=== PATIENT | male | born 1990 | race Caucasian/White ===

== ENCOUNTER 2016-06-07 13:05 | Emergency (ER) | payer SELFPAY ==
--- NOTE | 2016-06-07 13:43 | ERRECORD ---
[facility] EMERGENCY RECORD HPI WOUND CHECK (13:39 ABUS) CHIEF COMPLAINT: Patient presents for evaluation of arm wound, laceration, closed with sutures, Wound is 3 days old. HISTORIAN: History provided by patient, History provided by patient's family, Mother, 25 yr old who comes in for a wound check after he has a laceration that appeared infected and told to come back in 2 days for a wound check. He got a IM shot of penicillin. The redness and swelling improved. Denies any F, N/V. LOCATION: Symptoms are localized, most severe to to lacerations. SEVERITY: Currently there are no symptoms. TIME COURSE: Gradual onset of symptoms, 3, days priror to arrival, There has been no change in the patient's symptoms over time, are constant. ASSOCIATED WITH: No associated symptoms. EXACERBATED BY: Patient's condition exacerbated by nothing. RELIEVED BY: Patient's condition relieved by nothing. ROS (13:41 ABUS) CONSTITUTIONAL: Negative constitutional review of systems, Historian denies chills, denies fever. ENT: Negative ears, nose, throat review of systems, Historian denies rhinorrhea, denies sore throat. CARDIOVASCULAR: Negative cardiovascular review of systems, Historian denies chest pain, denies palpitations. RESPIRATORY: Negative respiratory review of systems, Historian denies cough, denies shortness of breath. GI: Negative gastrointestinal review of systems, Historian denies abdominal pain, denies constipation, denies diarrhea, denies nausea, denies vomiting. MUSCULOSKELETAL: Negative musculoskeletal review of systems, Historian denies back pain, denies fall, denies injury, denies neck pain. SKIN: Negative skin review of systems. NEUROLOGIC: Negative neurologic review of systems, Historian denies headache. PAST MEDICAL HISTORY (13:24 JPER) MEDICAL HISTORY: No past medical history, Tetanus immunization up to date, Date of immunization: 06/04/2015, , No past medical history, Flu vaccine not up to date,Pneumococcal vaccine not up to date, No past medical history,. MALE SURGICAL HISTORY: Surgical history of tonsillectomy, Surgical history of tonsillectomy, Surgical history of tonsillectomy. PSYCHIATRIC HISTORY: Notes: VERIFIED, Psychiatric history includes, anxiety, depression. SOCIAL HISTORY: Social History includes VERIFIED, Patient drinks every day, less than 5 drinks per day, Patient currently uses drugs, abuses marijuana, Patient currently uses tobacco, smokes cigarettes, Lives at home, with family, Patient &a-1R&a+25V*p+0X*[id number]*c152B*c15G*c2P*p-0X&a-25V&a+1RName: Scotty Mendes : M25 MedRec: [id number] AcctNum: [id number] Prepared: TueJun 07, 2016 14:03 by Interface Page 1 of 3 pMD [facility] EMERGENCY RECORD currently uses drugs, abuses marijuana, Social drug use, Patient drinks every day, less than 5 drinks per day, Patient currently uses tobacco, smokes cigarettes, daily, Patient has smoked for 5 years, Lives at home, with family. KNOWN ALLERGIES No Known Drug Allergies CURRENT MEDICATIONS (13:25 JPER) Cipro: TABLET : Strength - 500 mg : ORAL Patient Dose: 1 tab(s) Oral 2 times a day. Keflex: CAPSULE : Strength - 500 mg : ORAL Patient Dose: 1 cap(s) Oral 4 times a day. Ultram: TABLET : Strength - 50 mg : ORAL Patient Dose: 1 tab(s) Oral every 4 hours prn. VITAL SIGNS (13:23 JPER) VITAL SIGNS: BP: 137/76, Pulse: 70, Resp: 18, Temp: 99 (Oral), O2 sat: 98 on Room Air, Time: 06/07/2016 13:23. PHYSICAL EXAM (13:41 ABUS) CONSTITUTIONAL: Vital signs reviewed, Patient afebrile, Pulse normal, Blood pressure normal, Respiratory rate normal, Patient appears non toxic, Patient appears pain free, Patient alert and oriented to person, place and time. NECK: Neck exam normal, Neck exam included findings of normal range of motion, Trachea midline, no meningeal signs, no cervical adenopathy, no tenderness. RESPIRATORY CHEST: Respiratory and chest exam normal, Respiratory exam included findings of no respiratory distress, Breath sounds clear. CARDIOVASCULAR: Cardiovascular assessment normal, Cardiovascular exam included findings of heart rate regular rate and rhythm, Heart sounds normal. ABDOMEN MALE: Abdominal exam included findings of abdomen nontender, Bowel sounds normal, no distension, no mass, no pulsatile masses, no peritoneal signs, no rigidity, no guarding, no rebound, Rovsing's sign absent. BACK: Back exam normal, Back exam included findings of normal inspection, range of motion normal, no tenderness. NEURO: Neuro exam normal, Neuro exam findings include patient oriented to person, place and time, Speech normal, Gait normal. SKIN: Skin exam included findings of skin warm, dry, and normal in color, no rash, sutures in place to the R forearm and left dorsal hand intact, no redness or significant swelling. Has normal sensation to all major deramatomes and cap refill < sec, can flex and extend fingers. &a-1R&a+25V*p+0X*l2322W*c152B*c15G*c2P*p-0X&a-25V&a+1RName: Scotty Mendes : M25 MedRec: [id number] AcctNum: [id number] Prepared: TueJun 07, 2016 14:03 by Interface Page 2 of 3 pMD [facility] EMERGENCY RECORD DOCTOR NOTES (13:42 ABUS) TEXT: 25 yr old who comes in for a wound check after he has a laceration that appeared infected and told to come back in 2 days for a wound check. EXAM: Sutured wounds healing well; no s/s of infection DX: Normal wound healing without new or worsening infection. Plan: reassurance and return precautions. PROBLEM LIST No recorded problems DIAGNOSIS (13:35 ABUS) FINAL: PRIMARY: wound evaluation. PRESCRIPTION No recorded prescriptions DISPOSITION PATIENT: Disposition Type: Discharge, Disposition: *Discharge Home, Condition: Good. (13:35 ABUS) Patient left the department. (13:56 MDEB) Huynh: ABUS=MD Anne, Werner KWON=JOSE Martinez, Katerina MELENDEZEB=JOSE Knox, Christina &a-1R&a+25V*p+0X*[id number]*c152B*c15G*c2P*p-0X&a-25V&a+1RName: Scotty Mendes : M25 MedRec: [id number] AcctNum: [id number] Prepared: TueJun 07, 2016 14:03 by Interface Page 3 of 3 pMD [facility]
--- NOTE | 2016-06-07 13:46 | PICIS ---
[facility] EMERGENCY RECORD TRIAGE (13:24 JPER) PATIENT: NAME: Scotty Mendes, AGE: 25, GENDER: male, : TueOct 28, 1990, TIME OF GREET: TueJun 07, 2016 13:06, PREFERRED LANGUAGE: Turkish, RACE: WHITE, ETHNICITY: Not or , FALL RISK: NO, ECODE BILLING MAP: [facility], SSN: [id number], Zip Code: [address], KG WEIGHT: 53.07, PHONE: CELL, , , PERSON ID: [id number], PCP: NO PCP. (13:24 JPER) COMPLAINT: NEED STITCHES REMOVED. (13:24 JPER) ADMISSION: URGENCY: 4 Non Urgent, ADMISSION SOURCE: Home, TRANSPORT: Walk-in, BED: TRIAGE. (13:24 JPER) ASSESSMENT: Assessment: WOUND RECHECK. (13:24 JPER) PAIN: Location SORENESS TO AREA. (13:24 JPER) IMMUNIZATIONS: Tetanus immunization up to date. (13:24 JPER) SIRS SCORING: Heart Rate 55-109 (0), Temp range 96.8-101.1 (0), respiratory rate 12-24 (0), Mental Status altered: no (0). (13:24 JPER) TRIAGE SCREENING: Patient denies suicidal ideation, Patient denies presence of domestic violence. (13:24 JPER) PROVIDERS: TRIAGE NURSE: Katerina Martinez RN. (13:24 JPER) VITAL SIGNS: BP 137/76, Pulse 70, Resp 18, Temp 99, (Oral), O2 Sat 98, on Room Air, Time 06/07/2016 13:23. (13:23 JPER) PREVIOUS VISIT ALLERGIES: No Known Drug Allergies. (13:24 JPER) KNOWN ALLERGIES No Known Drug Allergies CURRENT MEDICATIONS (13:25 JPER) Cipro: TABLET : Strength - 500 mg : ORAL Patient Dose: 1 tab(s) Oral 2 times a day. Keflex: CAPSULE : Strength - 500 mg : ORAL Patient Dose: 1 cap(s) Oral 4 times a day. Ultram: TABLET : Strength - 50 mg : ORAL Patient Dose: 1 tab(s) Oral every 4 hours prn. VITAL SIGNS (13:23 JPER) VITAL SIGNS: BP: 137/76, Pulse: 70, Resp: 18, Temp: 99 (Oral), O2 sat: 98 on Room Air, Time: 06/07/2016 13:23. NURSING ASSESSMENT: SKIN (13:30 JPER) CONSTITUTIONAL: Patient arrives ambulatory, Gait steady, History obtained from patient, Patient appears comfortable, Patient cooperative, Patient alert, Oriented to person, place and time, Skin warm, Skin dry, Skin normal in color, Mucous membranes pink, Mucous membranes moist, Patient complains of WOUND RECHECK. PAIN: TENDERNESS TO WOUNDS, Pain exacerbated by nothing, Nothing has been tried to alleviate the pain. SKIN: Skin assessment findings include skin warm, Skin dry, Skin &a-1R&a+25V*p+0X*t3574Z*c152B*c15G*c2P*p-0X&a-25V&a+1RName: Scotty Meneds : M25 MedRec: [id number] AcctNum: [id number] Prepared: TueJun 07, 2016 14:09 by Interface Page 1 of 4 pMD [facility] EMERGENCY RECORD normal in color, Inspection findings include laceration, LEFT HAND AND RIGHT FA. NURSING PROCEDURE: DISCHARGE NOTE (13:52 MDEB) DISCHARGE: Patient discharged to home, ambulating without assistance, family driving, accompanied by parent, Summary of Care printed/ provided, Patient requested and was provided an electronic copy of Discharge Instructions, Transition record given to patient, Discharge instructions given to patient, Simple or moderate discharge teaching performed, S/S INFECTION, Above person(s) verbalized understanding of discharge instructions and follow-up care, Patient treated and evaluated by physician. BELONGINGS: Belongings remain with patient, Valuables remain with patient. NOTES: Emotional support needed and given, Patient tolerated procedure well. [facility] WOUND CHECK (13:39 ABUS) CHIEF COMPLAINT: Patient presents for evaluation of arm wound, laceration, closed with sutures, Wound is 3 days old. HISTORIAN: History provided by patient, History provided by patient's family, Mother, 25 yr old who comes in for a wound check after he has a laceration that appeared infected and told to come back in 2 days for a wound check. He got a IM shot of penicillin. The redness and swelling improved. Denies any F, N/V. LOCATION: Symptoms are localized, most severe to to lacerations. SEVERITY: Currently there are no symptoms. TIME COURSE: Gradual onset of symptoms, 3, days priror to arrival, There has been no change in the patient's symptoms over time, are constant. ASSOCIATED WITH: No associated symptoms. EXACERBATED BY: Patient's condition exacerbated by nothing. RELIEVED BY: Patient's condition relieved by nothing. ROS (13:41 ABUS) CONSTITUTIONAL: Negative constitutional review of systems, Historian denies chills, denies fever. ENT: Negative ears, nose, throat review of systems, Historian denies rhinorrhea, denies sore throat. CARDIOVASCULAR: Negative cardiovascular review of systems, Historian denies chest pain, denies palpitations. RESPIRATORY: Negative respiratory review of systems, Historian denies cough, denies shortness of breath. GI: Negative gastrointestinal review of systems, Historian denies abdominal pain, denies constipation, denies diarrhea, denies nausea, denies vomiting. MUSCULOSKELETAL: Negative musculoskeletal review of systems, Historian denies back pain, denies fall, denies injury, denies neck pain. SKIN: Negative skin review of systems. &a-1R&a+25V*p+0X*a7962V*c152B*c15G*c2P*p-0X&a-25V&a+1RName: Scotty Mendes : M25 MedRec: [id number] AcctNum: [id number] Prepared: TueJun 07, 2016 14:09 by Interface Page 2 of 4 pMD [facility] EMERGENCY RECORD NEUROLOGIC: Negative neurologic review of systems, Historian denies headache. PAST MEDICAL HISTORY (13:24 JPER) MEDICAL HISTORY: No past medical history, Tetanus immunization up to date, Date of immunization: 06/04/2015, , No past medical history, Flu vaccine not up to date,Pneumococcal vaccine not up to date, No past medical history,. MALE SURGICAL HISTORY: Surgical history of tonsillectomy, Surgical history of tonsillectomy, Surgical history of tonsillectomy. PSYCHIATRIC HISTORY: Notes: VERIFIED, Psychiatric history includes, anxiety, depression. SOCIAL HISTORY: Social History includes VERIFIED, Patient drinks every day, less than 5 drinks per day, Patient currently uses drugs, abuses marijuana, Patient currently uses tobacco, smokes cigarettes, Lives at home, with family, Patient currently uses drugs, abuses marijuana, Social drug use, Patient drinks every day, less than 5 drinks per day, Patient currently uses tobacco, smokes cigarettes, daily, Patient has smoked for 5 years, Lives at home, with family. PHYSICAL EXAM (13:41 ABUS) CONSTITUTIONAL: Vital signs reviewed, Patient afebrile, Pulse normal, Blood pressure normal, Respiratory rate normal, Patient appears non toxic, Patient appears pain free, Patient alert and oriented to person, place and time. NECK: Neck exam normal, Neck exam included findings of normal range of motion, Trachea midline, no meningeal signs, no cervical adenopathy, no tenderness. RESPIRATORY CHEST: Respiratory and chest exam normal, Respiratory exam included findings of no respiratory distress, Breath sounds clear. CARDIOVASCULAR: Cardiovascular assessment normal, Cardiovascular exam included findings of heart rate regular rate and rhythm, Heart sounds normal. ABDOMEN MALE: Abdominal exam included findings of abdomen nontender, Bowel sounds normal, no distension, no mass, no pulsatile masses, no peritoneal signs, no rigidity, no guarding, no rebound, Rovsing's sign absent. BACK: Back exam normal, Back exam included findings of normal inspection, range of motion normal, no tenderness. NEURO: Neuro exam normal, Neuro exam findings include patient oriented to person, place and time, Speech normal, Gait normal. SKIN: Skin exam included findings of skin warm, dry, and normal in color, no rash, sutures in place to the R forearm and left dorsal hand intact, no redness or significant swelling. Has normal sensation to all major deramatomes and cap refill < sec, can flex and extend fingers. EVENTS &a-1R&a+25V*p+0X*k8281H*c152B*c15G*c2P*p-0X&a-25V&a+1RName: Scotty Mendes : M25 MedRec: [id number] AcctNum: [id number] Prepared: TueJun 07, 2016 14:09 by Interface Page 3 of 4 pMD [facility] EMERGENCY RECORD TRANSFER: Triage to Emergency Triage. (TueJun 07, 2016 13:24 JPER) Emergency Triage to Main ED -03. (13:25 JPER) Removed from Emergency Main ED -03. (13:56 MDEB) DOCTOR NOTES (13:42 ABUS) TEXT: 25 yr old who comes in for a wound check after he has a laceration that appeared infected and told to come back in 2 days for a wound check. EXAM: Sutured wounds healing well; no s/s of infection DX: Normal wound healing without new or worsening infection. Plan: reassurance and return precautions. PROBLEM LIST No recorded problems DIAGNOSIS (13:35 ABUS) FINAL: PRIMARY: wound evaluation. DISPOSITION PATIENT: Disposition Type: Discharge, Disposition: *Discharge Home, Condition: Good. (13:35 ABUS) Patient left the department. (13:56 MDEB) INSTRUCTION (13:36 ABUS) DISCHARGE: WOUND CARE. FOLLOWUP: [facility], [address] [place] [address], , Follow up with Primary Care Physician in 3-4 days. SPECIAL: As discussed in the ED, please keep any upcoming appointments with your primary doctor or call the referral provided to you today to establish a follow up evaluation or ongoing medical care. Please come back if you start to have fever, vomiting, redness, swelling, numbness, or any symptoms that concern you. PRESCRIPTION No recorded prescriptions IMAGING (13:55 MDEB) *DISCHARGE INSTRUCTIONS RECEIPT: Image captured from scanner. *SUPPLY CHARGE SHEET: Image captured from scanner. ADMIN DIGITAL SIGNATURE: MD Rodríguez Anthony. (13:36 ABUS) MD Rodríguez Anthony. (13:43 ABUS) Huynh: ABUS=MD Rodríguez Anthony JPER=JOSE Martinez, Katerina ORTIZ=JOSE Knox, Christina &a-1R&a+25V*p+0X*j4305H*c152B*c15G*c2P*p-0X&a-25V&a+1RName: Scotty Mendes : M25 MedRec: [id number] AcctNum: [id number] Prepared: TueJun 07, 2016 14:09 by Interface Page 4 of 4 pMD [facility]
== END 2016-06-07 13:52 | disposition home or self-care (01) ==
LOC: MADERS 13:05
DX: S41.111D Laceration without foreign body of right upper arm, subsequent encounter (principal); F41.9 Anxiety disorder, unspecified; F32.9 Major depressive disorder, single episode, unspecified; Z79.2 Long term (current) use of antibiotics; X58.XXXD Exposure to other specified factors, subsequent encounter
CPT/HCPCS: 99282

== ENCOUNTER 2016-09-27 10:32 | Emergency (ER) | payer SELFPAY ==
[2016-09-27] MEDS ORDERED: Ondansetron ODT 4 MG TAB ONE (11:27)
[2016-09-27] MEDS ORDERED: AMOXicillin 250 MG CAP ONE (11:27)
[2016-09-27] MEDS ORDERED: Benzonatate 100 MG CAP ONE (11:27)
== END 2016-09-27 11:30 | disposition home or self-care (01) ==
LOC: MADERS 10:32
DX: J20.9 Acute bronchitis, unspecified (principal); F41.9 Anxiety disorder, unspecified; F32.9 Major depressive disorder, single episode, unspecified; F17.210 Nicotine dependence, cigarettes, uncomplicated
CPT/HCPCS: 99283; Q0162

== ENCOUNTER 2017-02-27 12:10 | Emergency (ER) | payer SELFPAY ==
--- NOTE | 2017-02-27 12:55 | RAD ---
THREE VIEWS RIGHT HAND: HISTORY: Trauma. FINDINGS: AP, lateral, and oblique views right hand are obtained. There is slight flexing deformity of the PIP joint 5th digit right hand. This may be due to soft ti ssue injury from previous trauma or disease. No evidence of osseous fracture, subluxations, or bony lesions seen. IMPRESSION: No definite evidence of bony pathology is seen in the right hand. POS: [facility]
== END 2017-02-27 13:50 | disposition home or self-care (01) ==
LOC: MADERS 12:10
DX: S60.221A Contusion of right hand, initial encounter (principal); K02.9 Dental caries, unspecified; K03.81 Cracked tooth; F41.9 Anxiety disorder, unspecified; F32.9 Major depressive disorder, single episode, unspecified; F17.210 Nicotine dependence, cigarettes, uncomplicated; W22.01XA Walked into wall, initial encounter

== ENCOUNTER 2017-06-28 13:12 | Emergency (ER) | payer SELFPAY ==
[2017-06-28] MEDS ORDERED: traMADol HCl 50 MG TAB ONE (14:32)
[2017-06-28] MEDS ORDERED: AMOXicillin 250 MG CAP ONE (14:33)
[2017-06-28] MEDS ORDERED: Phenergan/Codeine 10-6.25mg/5ml UDCUP ONE (14:33)
== END 2017-06-28 14:37 | disposition home or self-care (01) ==
LOC: MADERS 13:12
DX: J20.9 Acute bronchitis, unspecified (principal); F41.9 Anxiety disorder, unspecified; F32.9 Major depressive disorder, single episode, unspecified; F17.210 Nicotine dependence, cigarettes, uncomplicated
CPT/HCPCS: 99282

== ENCOUNTER 2018-05-25 06:47 | Emergency (ER) | payer SELFPAY | END 2018-05-25 08:00 | disposition home or self-care (01) | LOC: MADERS 06:47 | DX: K04.7 Periapical abscess without sinus (principal); L03.211 Cellulitis of face; F41.9 Anxiety disorder, unspecified; F32.9 Major depressive disorder, single episode, unspecified; F17.210 Nicotine dependence, cigarettes, uncomplicated | CPT/HCPCS: 99282 ==

== ENCOUNTER 2019-07-27 07:29 | Emergency (ER) | payer SELFPAY ==
[2019-07-27] MEDS ORDERED: Ibuprofen 600 MG TAB ONE (08:32)
--- NOTE | 2019-07-27 08:46 | RAD ---
PA AND LATERAL CHEST: Date: 07/27/2019 HISTORY: Cough. FINDINGS: Comparison made with exam of 11/01/2015. The cardiomediastinum is normal. The lungs are expanded and clear. The bony thorax is normal. IMPRESSION: Normal exam. POS: [facility]
== END 2019-07-27 09:09 | disposition home or self-care (01) ==
LOC: MADERS 07:29
DX: R50.9 Fever, unspecified (principal); R05 Cough; R09.81 Nasal congestion; F41.9 Anxiety disorder, unspecified; F32.9 Major depressive disorder, single episode, unspecified; F17.210 Nicotine dependence, cigarettes, uncomplicated
CPT/HCPCS: 71046; 87804

== ENCOUNTER 2020-06-13 14:17 | Emergency (ER) | payer SELFPAY ==
[2020-06-13] MEDS ORDERED: Ibuprofen 800 MG TAB ONE (15:06)
[2020-06-13] MEDS ORDERED: Amoxicillin/Potassium Clav 875 MG TAB ONE (15:06)
== END 2020-06-13 15:15 | disposition home or self-care (01) ==
LOC: MADERS 14:17
DX: K04.7 Periapical abscess without sinus (principal); K02.9 Dental caries, unspecified; K03.81 Cracked tooth; F17.210 Nicotine dependence, cigarettes, uncomplicated
CPT/HCPCS: 99282

== ENCOUNTER 2020-12-05 07:36 | Emergency (ER) | payer SELFPAY ==
[2020-12-05 08:19] LABS: #Basophils 0.1 thou/uL (0.0-0.2); #Lymphocytes 1.4 thou/uL (1.20-3.40); #Monocytes 1.1 thou/uL (0.11-0.59); #Neutrophils 12.4 thou/uL (1.40-6.50); %Basophils 0.6 % (0.0-1.0); %Eosinophils 0.1 % (0.0-10.0); %Lymphocytes 9.1 % (21.0-51.0); %Monocytes 7.5 % (0.0-10.0); %Neutrophils 82.7 % (42.0-75.0); Hemoglobin 15.3 g/dL (14.0-18.0); Mean Corpuscular Hemoglobin 33.8 pg (27.0-31.0); Mean Corpuscular Volume 102.4 fL (78.0-98.0); Mean Platelet Volume 6.9 fL (7.4-10.4); Platelet Count 216 thou/uL (130-400); Red Blood Cell (RBC) Count 4.53 mill/uL (4.70-6.10); White Blood Cell (WBC) Count 14.9 thou/uL (4.8-10.8)
[2020-12-05 08:30] LABS: Acetaminophen Less than 6.0 mcg/mL (10.0-30.0); Alcohol Less than 10 mg/dL (Less than 10); Salicylate Less than 8.0 mg/dL (15.0-30.0)
[2020-12-05 08:32] LABS: ALT (SGPT) 11 U/L (8-55); AST (SGOT) 19 U/L (5-34); Albumin 4.1 g/dL (3.5-5.0); Alkaline Phosphatase 44 U/L (40-110); Anion Gap 13 mmol/L (10-20); BUN (Urea Nitrogen) 9 mg/dL (8.9-20.6); Bilirubin, Total 0.7 mg/dL (0.2-1.2); Calc. Creatinine Clearance 0 mL/min (70-130); Calcium 9.2 mg/dL (7.8-10.44); Carbon Dioxide 24 mmol/L (22-29); Chloride 106 mmol/L (98-107); Globulin 2.3 g/dL (2.4-3.5); Glucose 157 mg/dL (70-105); Potassium 3.9 mmol/L (3.5-5.1); Protein, Total 6.4 g/dL (6.0-8.3); Sodium 139 mmol/L (136-145)
== END 2020-12-05 09:20 | disposition home or self-care (01) ==
LOC: MADERS 07:36
DX: T39.1X1A Poisoning by 4-Aminophenol derivatives, accidental (unintentional), initial encounter (principal); S09.90XA Unspecified injury of head, initial encounter; F17.210 Nicotine dependence, cigarettes, uncomplicated; X58.XXXA Exposure to other specified factors, initial encounter
CPT/HCPCS: 70450; 72125; 80053; 80307; 85025

== ENCOUNTER 2021-09-14 12:31 | Emergency (ER) | payer SELFPAY | END 2021-09-14 13:15 | disposition home or self-care (01) | LOC: MADERS 12:31 | DX: M70.821 Other soft tissue disorders related to use, overuse and pressure, right upper arm (principal); F17.210 Nicotine dependence, cigarettes, uncomplicated ==

== ENCOUNTER 2022-04-04 12:10 | Emergency (ER) | payer SELFPAY | END 2022-04-04 12:45 | disposition home or self-care (01) | LOC: MADERS 12:10 | DX: K04.7 Periapical abscess without sinus (principal); F17.210 Nicotine dependence, cigarettes, uncomplicated | CPT/HCPCS: 99283 ==

== ENCOUNTER 2022-09-26 20:15 | Emergency (ER) | payer SELFPAY ==
[2022-09-26 20:52] LABS: Hemoglobin 13.8 g/dL (14.0-18.0)
[2022-09-26 22:11] LABS: Hemoglobin 13.7 g/dL (14.0-18.0)
== END 2022-09-26 22:24 | disposition home or self-care (01) ==
LOC: MADERS 20:15
DX: K92.2 Gastrointestinal hemorrhage, unspecified (principal); F17.210 Nicotine dependence, cigarettes, uncomplicated
CPT/HCPCS: 85014; 85018; 99283